=== PATIENT | male | born 2000 | race American Indian/Alaskan Native ===

== ENCOUNTER 2019-11-21 11:40 | Emergency (ER) | payer SELFPAY ==
[2019-11-21 11:51] VITALS: BP 117/55
--- NOTE | 2019-11-21 11:55 | Emergency Department Report ---
Chief Complaint: Urogenital-Male Stated Complaint: POSS STD Time Seen by Provider: 11/21/19 11:51 - HPI History of Present Illness: This is a 18 y.o. M. that presents to the ER for STD screening. Patient states his significant other received a call from her doctor in [place] stating she have an STD. He denies penile discharge, pelvic pain, testicular swelling/pain, hematuria, urinary frequency, urgency, or dysuria. - ROS Review of Systems: Review of Systems: ROS: Stated complaint: STD screening Other details as noted in HPI Comment: All other systems reviewed and negative - Exam Vital Signs: Vital Signs 11/21/19 11:50 Temperature 97.7 F Pulse Rate 70 Respiratory 18 Rate Blood Pressure 117/55 O2 Sat by Pulse 100 Oximetry Physical Exam: - General Limitations: No Limitations General appearance: alert, in no apparent distress - Respiratory Respiratory exam: Present: normal lung sounds bilaterally. Absent: respiratory distress - Cardiovascular Cardiovascular Exam: Present: regular rate, normal rhythm. Absent: systolic murmur, diastolic murmur, rubs, gallop - GI/Abdominal GI/Abdominal exam: Present: soft, normal bowel sounds, and non-tender - Extremities Exam Extremities exam: Present: normal inspection - Back Exam Back exam: Present: normal inspection - Neurological Exam Neurological exam: Present: alert, oriented X3 - Psychiatric Psychiatric exam: Present: normal affect, normal mood - Skin Skin exam: Present: warm, dry, intact, normal color. Absent: rash MSE screening note: Focused history and physical exam performed. Due to findings the following was ordered: ED Medical Decision Making - Medical Decision Making This is a 18 y.o. M. that presents to the ER for STD screening. VSS. Patient in no acute distress. Denies fever, chills, penile discharge, testicle swelling/pain, pelvic pain, back pain, and urinary changes. Abdomen non-tender on exam. This is a non-emergent complaint. Patient given handout of clinics to follow up with for full STD screening. Patient discharged home stable with strict return precautions. ED Disposition for MSE Disposition: MED SCREENING EXAM-LEFT Is pt being admited?: No Condition: Stable Instructions: Safe Sex (ED), Sexually Transmitted Diseases (ED) Additional Instructions: Follow up with a primary care doctor or health department from the list below. Referrals: [facility] [Outside] - 3-5 Days [facility] [Outside] - 3-5 Days [facility] [Outside] - 3-5 Days [facility] [Outside] - 3-5 Days Time of Disposition: 11:54
== END 2019-11-21 12:50 | disposition left against medical advice (07) ==
LOC: ED 11:40
DX: Z20.2 Contact with and (suspected) exposure to infections with a predominantly sexual mode of transmission (principal)
CPT/HCPCS: 99281